=== PATIENT | male | born 1975 | race Caucasian/White ===

== ENCOUNTER 2020-12-19 10:28 | Outpatient (REF) | payer BC, SELFPAY ==
[2020-12-19 10:50] LABS: COVID-19 Test Negative (Negative); IDNOW Serial# 55D5AD1C
== END 2020-12-19 10:29 | disposition home or self-care (01) ==
LOC: HO.LAB 10:28
PROVIDERS: Visit Provider Internal Medicine
DX: Z20.822 Contact with and (suspected) exposure to COVID-19 (principal)
CPT/HCPCS: 36415; 87635; C9803

== ENCOUNTER 2020-12-22 10:34 | Outpatient (REF) | payer BC, SELFPAY ==
[2020-12-22 10:52] LABS: COVID-19 Test Negative (Negative)
== END 2020-12-22 10:35 | disposition home or self-care (01) ==
LOC: HO.EMPCOV 10:34
PROVIDERS: Visit Provider Internal Medicine
DX: Z20.822 Contact with and (suspected) exposure to COVID-19 (principal)
CPT/HCPCS: 36415; 87635; C9803